=== PATIENT | male | born 1980 | race African-American/Black ===

== ENCOUNTER 2020-08-15 11:41 | Emergency (ER) | payer MEDICAID ==
[~2020-08-15] VITALS: Ht 180.3 cm; Wt 86.0 kg
[~2020-08-15 11:41] MED LIST: ABIL5 PO; FLUO10CA25 PO
[2020-08-15 12:37] LABS: BASOPHILS % 0.8 % (0.0-2.0); EOSINOPHILS % 3.4 % (0.0-5.0); HEMATOCRIT. 35.5 % (42.0-52.0); HEMOGLOBIN. 11.6 g/dL (14.0-18.0); LYMPHOCYTES % 18.1 % (20.0-50.0); MEAN CORPUSCULAR VOLUME 88.7 fL (80.0-94.0); MEAN PLATELET VOLUME 7.1 fl (7.4-10.4); MONOCYTES % 8.7 % (2.0-8.0); PLATELET 237 x1000/uL (130-400)
[2020-08-15 12:45] LABS: CHLORIDE 107 mEq/L (98-107)
[2020-08-15 12:48] LABS: INR 0.9; PROTHROMBIN TIME 9.3 sec (9.6-11.0)
[2020-08-15] MEDS ORDERED: TERBUTALINE SULFATE 1MG/ML VIAL SUBCUT ONE ×2 (13:15)
[2020-08-15 14:57] VITALS: BP 127/84
== END 2020-08-15 14:56 | disposition home or self-care (01) ==
LOC: ER 11:54
DX: N48.30 Priapism, unspecified (principal); F25.9 Schizoaffective disorder, unspecified
CPT/HCPCS: 36415; 80053; 85025; 85610; 99283; J3105

== ENCOUNTER 2020-08-16 12:20 | Emergency (ER) | payer MEDICAID ==
[~2020-08-16] VITALS: Ht 190.5 cm; Wt 122.0 kg
[2020-08-16] MEDS ORDERED: FENTANYL CITRATE/PF 50MCG/ML 1ML VIAL IV NR (13:00)
[2020-08-16] MEDS ORDERED: FENTANYL CITRATE/PF 50MCG/ML 2ML VIAL IV NR (13:00)
[2020-08-16 13:02] LABS: HEMATOCRIT. 34.7 % (42.0-52.0); HEMOGLOBIN. 11.5 g/dL (14.0-18.0); MEAN CORPUSCULAR HEMOGLOBIN 29.2 pg (28.0-32.0); MEAN CORPUSCULAR VOLUME 87.9 fL (80.0-94.0); MEAN PLATELET VOLUME 7.4 fl (7.4-10.4); PLATELET 239 x1000/uL (130-400); RED BLOOD CELL COUNT 3.95 mill/uL (4.7-6.1); RED CELL DISTRIBUTION WIDTH 14.3 % (11.6-14.6)
[2020-08-16 13:12] LABS: PROTHROMBIN TIME 10.3 sec (9.6-11.0)
[2020-08-16 13:14] LABS: CHLORIDE 100 mEq/L (98-107)
[2020-08-16] MEDS ORDERED: PHENYLEPHRINE 100MCG/ML 10ML VIAL (CATH LAB) IV NR (13:15)
[2020-08-16 13:23] LABS: PLATELET ESTIMATE NORMAL
[2020-08-16] MEDS ORDERED: SODIUM CHLORIDE 0.9% 1,000 ML IV ONE (14:15)
[2020-08-16] MEDS ORDERED: KETOROLAC 30MG/ML VIAL IV ONE (15:00)
[2020-08-16 16:02] LABS: CLARITY URINE CLEAR (CLEAR); COLOR URINE YELLOW (YELLOW); KETONES URINE NEGATIVE (NEGATIVE); LEUKOCYTE ESTERASE URINE NEGATIVE (NEGATIVE); NITRITE URINE NEGATIVE (NEGATIVE); OCCULT BLOOD URINE NEGATIVE (NEGATIVE); PROTEIN URINE NEGATIVE (NEGATIVE); SPECIFIC GRAVITY URINE 1.009 (1.005-1.030); UROBILINOGEN URINE 0.2 E.U./dL (0.2-1.0)
[2020-08-16 16:13] LABS: *AMPHETAMINES SCREEN URINE NEGATIVE (NEGATIVE); *BARBITURATES SCREEN URINE NEGATIVE (NEGATIVE)
[2020-08-16 16:14] LABS: *BENZODIAZEPINES SCREEN URINE NEGATIVE (NEGATIVE); *COCAINE SCREEN URINE NEGATIVE (NEGATIVE); METHADONE URINE SCREEN NEGATIVE (NEGATIVE); OPIATES URINE SCREEN NEGATIVE (NEGATIVE); PHENCYCLIDINE URINE SCREEN NEGATIVE (NEGATIVE)
[2020-08-16 16:17] LABS: CANNABINOID URINE SCREEN NEGATIVE (NEGATIVE)
[2020-08-16] MEDS ORDERED: ONDANSETRON HCL 4MG/2ML INJ IV STA (17:13)
[2020-08-16] MEDS ORDERED: MORPHINE SULFATE 4 MG/ML CPJ (NOT FOR IM USE) IV STA (17:13)
[2020-08-17 22:10] VITALS: BP 127/82
== END 2020-08-17 22:12 | disposition left against medical advice (07) ==
LOC: ER 12:20
DX: N48.30 Priapism, unspecified (principal); R00.0 Tachycardia, unspecified; R73.9 Hyperglycemia, unspecified; D64.9 Anemia, unspecified; F20.9 Schizophrenia, unspecified; F17.210 Nicotine dependence, cigarettes, uncomplicated; Z71.6 Tobacco abuse counseling
CPT/HCPCS: 36415; 71045; 80053; 80305; 81003; 85025; 85610; 87426; 96361; 96374; 96375; 99285; 99406; J1885; J2270; J2370; J2405; Z7610; J3010